=== PATIENT | male | born 1990 ===

== ENCOUNTER 2017-07-19 09:15 | Emergency (ER) | payer BC ==
[2017-07-19 09:31] VITALS: BP 156/99; PULSE 88; RESP 16; TEMP 97.8; O2SAT 98
--- NOTE | 2017-07-19 10:09 | C.PDOC ---
History Of Present Illness Chris Edwards is a 26 year old male, with no significant past medical history, who presents to the emergency department complaining of a sudden onset chest, abdomen and back pain. Pain is digitally reproducible and occurred while he fell asleep in a car as girlfriend drove him from [place] to [place]. Patient states he was pain free before the episode and claims he woke up with the pain. He denies any substance abuse, fever, chills or other medical complaints. PMD: Britt Means Time Seen by Provider: 07/19/17 10:02 Chief Complaint (Nursing): Back Pain History Per: Patient History/Exam Limitations: no limitations Onset/Duration Of Symptoms: Hrs (ROUGHER FOR CEMENT) Current Symptoms Are (Timing): Still Present Quality Of Discomfort: "Pain" Past Medical History Reviewed: Historical Data, Nursing Documentation, Vital Signs Vital Signs: Last Vital Signs Temp 97.8 F 07/19/17 09:24 Pulse 88 07/19/17 09:24 Resp 16 07/19/17 09:24 BP 156/99 H 07/19/17 09:24 Pulse Ox 98 07/19/17 10:24 - Medical History PMH: No Chronic Diseases Surgical History: No Surg Hx Family History: States: Unknown Family Hx - Social History Hx Tobacco Use: No Hx Alcohol Use: No Hx Substance Use: No - Immunization History Hx Tetanus Toxoid Vaccination: No Hx Influenza Vaccination: No Hx Pneumococcal Vaccination: No Review Of Systems Constitutional: Negative for: Fever, Chills Cardiovascular: Positive for: Chest Pain Gastrointestinal: Positive for: Abdominal Pain Musculoskeletal: Positive for: Back Pain Physical Exam - Physical Exam Appears: In Acute Distress (moderate) Skin: Normal Color, Warm, Dry Head: Atraumatic, Normacephalic Eye(s): bilateral: Abnormal Pupil (Dilated pupils) Ear(s): Bilateral: Normal Nose: Normal Oral Mucosa: Moist Throat: Normal Neck: Normal ROM Chest: Other (digitally reproducible pain in bilateral parasternal area) Cardiovascular: Rhythm Regular, No Murmur Respiratory: Normal Breath Sounds, No Wheezing Gastrointestinal/Abdominal: Normal Exam, Soft, No Tenderness, No Guarding, No Rebound Back: Normal Inspection, No CVA Tenderness, No Vertebral Tenderness Extremity: Normal ROM, No Deformity, No Swelling Neurological/Psych: Oriented x3, Other (bizarre affect) Gait: Steady Additional Physical Exam Comments: Vague pain in chest, abdomen and back ED Course And Treatment - Laboratory Results Lab Interpretation: Abnormal (tox + cocaine and cannabanoids) O2 Sat by Pulse Oximetry: 98 (RA) Pulse Ox Interpretation: Normal Medical Decision Making Medical Decision Making: Initial Impression: Reproducible chest pain Initial Plan: --Drug screen, urine --Motrin tab 600 mg PO --Ultram 50 mg PO --Urinalysis --reevaluation pupilary mydriasis and bizarre hyperactive behavior more c/w cocaine and/or cannabis abuse Educated to avoid abuse in pt with h/o chronic pain issues, [place] ER PHYSICIAN neg. Disposition Doctor Will See Patient In The: Office Counseled Patient/Family Regarding: Studies Performed, Diagnosis - Disposition Disposition: HOME/ ROUTINE Disposition Time: 12:25 Condition: GOOD Forms: [facility] (Irish) - Clinical Impression Clinical Impression: Cocaine abuse, Cannabis abuse - Scribe Statement Roman Telles Provider Attestation: All medical record entries made by the Scribe were at my direction and personally dictated by me. I have reviewed the chart and agree that the record accurately reflects my personal performance of the history, physical exam, medical decision making, and the department course for this patient. I have also personally directed, reviewed, and agree with the discharge instructions and disposition.
[2017-07-19 11:03] LABS: URINE BACTERIA RARE (<OCC); URINE BILIRUBIN NEGATIVE (NEGATIVE); URINE BLOOD 1+ (NEGATIVE); URINE CLARITY Hazy (Clear); URINE GLUCOSE (UA) NORMAL (Normal); URINE HYALINE CAST 0-2 /lpf (0-2); URINE LEUKOCYTE ESTERASE NEG Leu/uL (Negative); URINE NITRATE NEGATIVE (NEGATIVE); URINE PROTEIN 2+ mg/dL (NEGATIVE)
[2017-07-19 11:05] LABS: URINE COLOR YELLOW (YELLOW)
[2017-07-19 11:24] LABS: BARBITURATES, UR NEGATIVE (NEGATIVE); BENZODIAZEPINES, UR NEGATIVE (NEGATIVE); OPIATES, UR NEGATIVE (NEGATIVE); PHENCYCLIDINE, UR NEGATIVE (NEGATIVE)
== END 2017-07-19 12:33 | disposition home or self-care (01) ==
LOC: C.ER 09:15
DX: F12.10 Cannabis abuse, uncomplicated (principal)
CPT/HCPCS: 81001; 99283; G0480